=== PATIENT | male | born 1960 | race Caucasian/White ===

== ENCOUNTER 2017-07-13 06:45 | Emergency (ER) | payer BC, OTHER ==
[~2017-07-13] VITALS: Ht 188 cm; Wt 90.7 kg
[2017-07-13] MEDS ORDERED: DOXYCYCLINE 10100 M2 PO (07:03)
[2017-07-13] MEDS ORDERED: TESSALON PERLE100 MG PO (07:03)
[2017-07-13] MEDS ORDERED: COUGH & COLD S237 ML PO (07:04)
[2017-07-13] MEDS ORDERED: PROAIR RESPICL90 MCG INH (07:04)
[2017-07-13] MEDS ORDERED: EXCEDRIN CAPLE1 EACH PO (07:04)
[2017-07-13] MEDS ORDERED: FLONASE 0.05%50 MCG NASAL (07:04)
[2017-07-13 07:50] LABS: INFLUENZA A ANTIGEN None Detected (None Detect); INFLUENZA B ANTIGEN None Detected (None Detect)
[2017-07-13] MEDS ORDERED: MEDROL DOSPAK21 TA1 PO (07:57)
[2017-07-13 08:08] VITALS: BP 126/72
== END 2017-07-13 08:09 | disposition home or self-care (01) ==
LOC: M.ERS 06:45
PROVIDERS: Emergency Medicine
DX: J40 Bronchitis, not specified as acute or chronic (principal); Z90.49 Acquired absence of other specified parts of digestive tract; Z90.89 Acquired absence of other organs